=== PATIENT | female | born 1995 | race Caucasian/White ===

== ENCOUNTER 2022-04-10 19:49 | Emergency (ER) | payer OTHER, SELFPAY ==
[2022-04-10 19:51] VITALS: BP 119/75; PULSE 98; RESP 18; TEMP 37.2; O2SAT 97; BMI 32.7
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
== END 2022-04-10 21:37 | disposition home or self-care (01) ==
PROVIDERS: Emergency Provider Internal Medicine; PCP Internal Medicine
DX: S00.83XA Contusion of other part of head, initial encounter (principal); Y04.8XXA Assault by other bodily force, initial encounter; Y93.9 Activity, unspecified; Y92.219 Unspecified school as the place of occurrence of the external cause; Y99.0 Civilian activity done for income or pay
CPT/HCPCS: 99282; 99283